=== PATIENT | male | born 1985 | race African-American/Black ===

== ENCOUNTER 2017-01-28 11:51 | Day surgery (SDC) | payer BC ==
[2017-01-28 12:26] VITALS: BMI 35.2
[2017-01-28] MEDS ORDERED: PROPOFOL 20 ML ONE ×2 (14:18)
[2017-01-28] MEDS ORDERED: MIDAZOLAM HCL 2 MG/2 ML SINGLE DOSE VIAL ONE (14:18)
[2017-01-28] MEDS ORDERED: DEXAMETHASONE SOD PHOSPHATE 4 MG/1 ML VIAL ONE (14:35)
[2017-01-28] MEDS ORDERED: ceFAZolin SODIUM 1 GM VIAL ONE (14:35)
[2017-01-28] MEDS ORDERED: ONDANSETRON 4 MG/2 ML VIAL ONE (14:35)
[2017-01-28] MEDS ORDERED: ePHEDrine SULFATE 50 MG/1 ML AMPULE ONE (14:43)
[2017-01-28] MEDS ORDERED: BUPIVACAINE HCL/PF 0.5% (5MG/ML) 10 ML VIAL IJ ONE (15:20)
[2017-01-28] MEDS ORDERED: ONDANSETRON 4 MG/2 ML VIAL IVPUSH PRN (15:25)
[2017-01-28] MEDS ORDERED: oxyCODONE HCL 5 MG TABLET PO PRN (15:25)
[2017-01-28] MEDS ORDERED: PROMETHAZINE HCL 25 MG/1 ML VIAL IVPUSH PRN (15:25)
[2017-01-28] MEDS ORDERED: oxyCODONE HCL 5 MG TABLET ONE (16:02)
[2017-01-28 16:07] VITALS: TEMP 98
[2017-01-28 16:35] VITALS: BP 143/86; PULSE 74
--- NOTE | 2017-02-03 01:03 | OP ---
DATE OF OPERATION: 01/28/2017 PREOPERATIVE DIAGNOSIS: 1. Right fourth metacarpal fracture. 2. Right fifth metacarpal fracture. POSTOPERATIVE DIAGNOSIS: 1. Right fourth metacarpal fracture. 2. Right fifth metacarpal fracture. OPERATIVE PROCEDURE: 1. Open reduction internal fixation of right fourth metacarpal fracture. 2. Open reduction internal fixation of right fifth metacarpal fracture. SURGEON: Daniella Lewis M.D. [employer]OV[employer] LOADER OPERATOR: Helen Powers ANESTHESIA: General. COMPLICATIONS: None. ESTIMATED BLOOD LOSS: Minimal. INDICATION FOR PROCEDURE: The patient is a 31-year-old male with the above findings indicated for operative treatment. Risks, benefits, and alternatives were discussed with patient at length, informed consent was obtained. PROCEDURE: After proper identification of the patient and correct operative site, patient was brought to the operating room and placed table, prominences well padded. General anesthesia was provided by the anesthesiologist adequate for procedure. Right upper extremity was prepped and draped in the usual sterile fashion with well-padded tourniquet placed after sterile prep. Esmarch bandage to exsanguinate the right upper extremity. Tourniquet was inflated to 250 mmHg. Longitudinal incision was made at the base of the 4th metacarpal. Incision was taken sharply through skin with sharp and blunt dissection to the subcutaneous tissues. Base of the 4th metacarpal was identified radiographically and an awl was placed to prepare the base of the metacarpal for insertion of the intramedullary device. A [employer] intramedullary nail was then placed from proximal to distal direction to the fracture site. The fracture was then reduced, and the intramedullary device was passed across the fracture site into the distal metacarpal shaft, securing fixation. Identical procedure was then performed on the 5th metacarpal. X-rays were taken confirming proper placement of all hardware and size of all hardware as well as reduction of all fractures. Rotational alignment was also confirmed. Wounds were irrigated with saline and repaired using 5-0 nylon sutures. Sterile dressings were applied. Pins were cut short and bent outside of the skin. Sterile dressings were applied. A splint was placed. Patient was reversed from anesthesia and brought to recovery in stable condition. Ervin Garcia, the support assistant, was integral throughout the procedure. The procedure could not have been performed without a skilled operative support assistant. DANIELLA LEWIS M.D. [id number]
== END 2017-01-28 16:51 | disposition home or self-care (01) ==
LOC: FOR 11:51 → FASU 11:51
PROVIDERS: ATTEND Orthopaedic Surgery Hand Surgery
PROC: 0PSP04Z Reposition Right Metacarpal with Internal Fixation Device, Open Approach (ICD-10-PCS; principal; 2017-01-28 14:47)
DX: S62.324A Displaced fracture of shaft of fourth metacarpal bone, right hand, initial encounter for closed fracture (principal); S62.326A Displaced fracture of shaft of fifth metacarpal bone, right hand, initial encounter for closed fracture; X58.XXXA Exposure to other specified factors, initial encounter; Y93.9 Activity, unspecified; Y92.9 Unspecified place or not applicable
CPT/HCPCS: 73130-TC-RT; 94760